=== PATIENT | male | born 2005 | race Caucasian/White ===

== ENCOUNTER 2025-03-07 16:18 | Emergency (ER) | payer OTHER ==
[2025-03-07 16:24] VITALS: BP 139/68; PULSE 79; RESP 18; TEMP 97.5; BMI 21.9
== END 2025-03-07 18:16 | disposition home or self-care (01) ==
LOC: FER 16:18
DX: S93.401A Sprain of unspecified ligament of right ankle, initial encounter (principal); X50.1XXA Overexertion from prolonged static or awkward postures, initial encounter; Y99.0 Civilian activity done for income or pay
CPT/HCPCS: 73610-TC-RT-FY; 73630-TC-RT-FY; 99283-25